=== PATIENT | male | born 1960 ===

== ENCOUNTER 2019-01-16 08:09 | Day surgery (SDC) | payer OTHER ==
[~2019-01-16 08:09] MED LIST: ELIQUIS5 MG PO; METFORMIN HCL500 M2 PO; PRINIVIL5 MG PO; VITACEL TABLET1 EACH PO
[2019-01-16] MEDS ORDERED: PERCOCET 5-3251 EACH PO (09:07)
[2019-01-16] MEDS ORDERED: COLACE100 MG PO (09:07)
== END 2019-01-17 08:00 | disposition home or self-care (01) ==
LOC: CIR.AMB 08:09 → O/R 11:56 → SURH 11:56 → CIR.AMB 11:56 → SURH 13:25 → O/R 13:25 → CIR.AMB 13:30 → SURH 01-17 15:47
DX: D12.8 Benign neoplasm of rectum (principal)